=== PATIENT | female | born 1950 | race Caucasian/White ===

== ENCOUNTER 2016-09-09 05:35 | Day surgery (SDC) | payer MEDICARE, OTHER ==
[~2016-09-09 05:35] MED LIST: KEFLEX500 MG PO; LIPITOR10 M1 PO; TRAZODONE HCL100 M1 PO
[2016-09-10] MEDS ORDERED: NORCO 5-325 TA1 EACH PO (07:52)
[2016-09-10] MEDS ORDERED: KEFLEX500 M4 PO (07:53)
== END 2016-09-10 09:15 ==
LOC: SRG 05:35 → SHSA 05:37 → ORE 07:57 → PACU 09:51 → 5WD 10:35
PROC: 0HBV0ZZ Excision of Bilateral Breast, Open Approach (ICD-10-PCS; principal; 2016-09-09)
DX: N62 Hypertrophy of breast (principal); D64.9 Anemia, unspecified; E78.5 Hyperlipidemia, unspecified; M17.9 Osteoarthritis of knee, unspecified; M54.2 Cervicalgia; Z79.899 Other long term (current) drug therapy; Z88.5 Allergy status to narcotic agent; Z98.890 Other specified postprocedural states
CPT/HCPCS: J0690; J2270

== ENCOUNTER 2016-10-13 15:59 | Emergency (ER) | payer MEDICARE, OTHER ==
[~2016-10-13 15:59] MED LIST changes: +KEFLEX500 M4 PO; +NORCO 5-325 TA1 EACH PO
[2016-10-13] MEDS ORDERED: ZOVIRAX800 M1 PO (20:23)
[2016-10-13] MEDS ORDERED: ANUSOL-HC25 MG PR (20:23)
== END 2016-10-13 20:30 ==
LOC: EDMED 15:59
DX: B02.9 Zoster without complications (principal); K64.5 Perianal venous thrombosis; K59.00 Constipation, unspecified; E78.5 Hyperlipidemia, unspecified

== ENCOUNTER 2016-10-15 12:46 | Emergency (ER) | payer MEDICARE, OTHER ==
[~2016-10-15 12:46] MED LIST changes: +ANUSOL-HC25 MG PR; +ZOVIRAX800 M1 PO
[2016-10-15 13:33] LABS: URINE BILIRUBIN NEGATIVE (NEG); URINE BLOOD NEGATIVE (NEG); URINE GLUCOSE (UA) NEGATIVE (NEG); URINE KETONE NEGATIVE (NEG); URINE LEUKOCYTE ESTERASE POSITIVE (NEG); URINE NITRITE NEGATIVE (NEG); URINE PROTEIN NEGATIVE (NEG)
[2016-10-15 13:34] LABS: URINE APPEARANCE CLEAR; URINE COLOR YELLOW
[2016-10-15 13:42] LABS: URINE EPITHELIAL CELLS RARE /[HPF] (0-10); URINE RBC 0 /[HPF] (0-5)
== END 2016-10-15 15:22 ==
LOC: EDMED 12:46
PROVIDERS: Physician Assistant
PROC: 0T9B70Z Drainage of Bladder with Drainage Device, Via Natural or Artificial Opening (ICD-10-PCS; principal; 2016-10-15)
PROC: 4A0D7LZ Measurement of Urinary Volume, Via Natural or Artificial Opening (ICD-10-PCS; 2016-10-15)
DX: R35.0 Frequency of micturition (principal); K59.00 Constipation, unspecified; B02.9 Zoster without complications; Z98.42 Cataract extraction status, left eye; Z98.41 Cataract extraction status, right eye; Z98.890 Other specified postprocedural states